=== PATIENT | female | born 1990 | race Caucasian/White ===

== ENCOUNTER 2017-07-07 05:31 | Emergency (ER) | payer OTHER ==
[2017-07-07] MEDS ORDERED: SODIUM CHLORIDE 0.9% 1,000 ML IV STA ×2 (05:51→06:49)
[2017-07-07] MEDS ORDERED: AMPICILLIN-SULBACTAM 3 GM in SODIUM CHLORIDE 0.9% 100 ML IVPB STA (05:51)
[2017-07-07] MEDS ORDERED: DEXAMETHASONE SOD PHOSPHATE 10 MG/ML 1 ML VIAL IV STA (05:51)
--- NOTE | 2017-07-07 05:55 | ED ---
General Adult HPI - General Source: patient, RN notes reviewed Mode of arrival: ambulatory Limitations: no limitations <Braden Meyer - Last Filed: 07/07/17 05:53> <Hima Welsh - Last Filed: 07/07/17 08:34> - General Chief complaint: ENT Stated complaint: Sore throat Time Seen by Provider: 07/07/17 05:47 - History of Present Illness Initial comments: Patient is a pleasant 27-year-old female presenting to the emergency department with sore throat. Onset was 2 days ago. Symptoms have worsened since last night. Patient has had fever. Patient is able to tolerate oral liquids and some solids with difficulty. Patient does feel a little bit short of breath secondary to swelling. Patient states it hurts to swallow. No cough. (Braden Meyer) - Related Data Previous Rx's Medication Instructions Recorded Amoxicillin/Potassium Clav 1 tab PO Q12HR #20 tab 07/07/17 [Augmentin 875-125 Tablet] Ibuprofen 800 mg PO Q6HR PRN #20 tablet 07/07/17 methylPREDNISolone Dose Pack 4 mg PO DIRECTED #21 package 07/07/17 [Medrol Dose Pack] Allergies Allergy/AdvReac Type Severity Reaction Status Date / Time No Known Allergies Allergy Verified 07/07/17 08:09 Review of Systems ROS Other: All systems not noted in ROS Statement are negative. Constitutional: Reports: fever Eyes: Denies: eye pain ENT: Reports: throat pain. Denies: ear pain Respiratory: Denies: cough Cardiovascular: Denies: chest pain Endocrine: Denies: fatigue Gastrointestinal: Denies: abdominal pain Genitourinary: Denies: dysuria Musculoskeletal: Denies: back pain Skin: Denies: rash Neurological: Denies: weakness <Braden Meyer - Last Filed: 07/07/17 05:53> ROS Other: All systems not noted in ROS Statement are negative. <Hima Welsh - Last Filed: 07/07/17 08:34> ROS Statement: Those systems with pertinent positive or pertinent negative responses have been documented in the HPI. Past Medical History Past Medical History: No Reported History Additional Past Medical History / Comment(s): labor at 33 weeks, 39 week delivery. History of Any Multi-Drug Resistant Organisms: None Reported Past Surgical History: No Surgical Hx Reported Past Anesthesia/Blood Transfusion Reactions: No Reported Reaction Past Psychological History: No Psychological Hx Reported Smoking Status: Never smoker Past Alcohol Use History: None Reported Past Drug Use History: None Reported - Past Family History Father History Unknown: Yes Family Medical History: Cancer Additional Family Medical History / Comment(s): colon cancer Mother Family Medical History: No Reported History <Braden Meyer - Last Filed: 07/07/17 05:53> General Exam Limitations: no limitations General appearance: alert, in no apparent distress Head exam: Present: atraumatic Eye exam: Present: normal appearance, PERRL Expanded Throat exam: tonsillar erythema, tonsillomegaly, tonsillar exudate, other (No trismus. No uvular deviation.). negative: R peritonsillar mass, L peritonsillar mass Neck exam: Present: normal inspection Respiratory exam: Present: normal lung sounds bilaterally Cardiovascular Exam: Present: normal rhythm, tachycardia GI/Abdominal exam: Present: soft. Absent: tenderness Extremities exam: Present: normal inspection Neurological exam: Present: alert Psychiatric exam: Present: normal affect, normal mood Skin exam: Present: normal color <Braden Meyer - Last Filed: 07/07/17 05:53> Course <Braden Meyer - Last Filed: 07/07/17 05:53> <Hima Welsh - Last Filed: 07/07/17 08:34> Vital Signs 07/07/17 07/07/17 07/07/17 05:33 06:15 08:15 Temperature 99.7 F H 100.1 F H Pulse Rate 138 H 130 H 108 H Respiratory 18 20 18 Rate Blood Pressure 118/66 117/66 115/66 O2 Sat by Pulse 100 100 99 Oximetry - Reevaluation(s) Reevaluation #1: 07/07/17 08:31 The patient was endorsed to me by Dr. Meyer at our shift change pending IV fluids and IV antibiotics. Patient is feeling improved she still feels warm. She'll be placed on oral antibiotics and is encouraged to take fluids also Motrin and Tylenol for fever control. I also did suggest that steroids would help with the pharyngeal process. Patient is in agreement and would like to go home she'll be discharged (Hima Welsh) Medical Decision Making - Lab Data Result diagrams: 07/07/17 06:05 07/07/17 06:05 <Hima Welsh - Last Filed: 07/07/17 08:34> - Lab Data Lab Results 07/07/17 07/07/17 07/07/17 Range/Units 05:40 06:05 06:05 WBC 17.3 H (3.8-10.6) k/uL RBC 5.10 (3.80-5.40) m/uL Hgb 12.8 (11.4-16.0) gm/dL Hct 39.6 (34.0-46.0) % MCV 77.7 L (80.0-100.0) fL MCH 25.1 (25.0-35.0) pg MCHC 32.3 (31.0-37.0) g/dL RDW 15.1 (11.5-15.5) % Plt Count 218 (150-450) k/uL Neutrophils % 87 % Lymphocytes % 6 % Monocytes % 5 % Eosinophils % 1 % Basophils % 0 % Neutrophils # 15.0 H (1.3-7.7) k/uL Lymphocytes # 1.1 (1.0-4.8) k/uL Monocytes # 0.8 (0-1.0) k/uL Eosinophils # 0.1 (0-0.7) k/uL Basophils # 0.1 (0-0.2) k/uL Sodium 143 (137-145) mmol/L Potassium 3.9 (3.5-5.1) mmol/L Chloride 102 (98-107) mmol/L Carbon Dioxide 22 (22-30) mmol/L Anion Gap 19 mmol/L BUN 10 (7-17) mg/dL Creatinine 0.80 (0.52-1.04) mg/dL Est GFR (CKD-EPI)AfAm >90 (>60 ml/min/1.73 sqM) Est GFR (CKD-EPI)NonAf >90 (>60 ml/min/1.73 sqM) Glucose 111 H (74-99) mg/dL Calcium 10.4 H (8.4-10.2) mg/dL Total Bilirubin 0.8 (0.2-1.3) mg/dL AST 18 (14-36) U/L ALT 20 (9-52) U/L Alkaline Phosphatase 95 (38-126) U/L Total Protein 8.3 H (6.3-8.2) g/dL Albumin 4.6 (3.5-5.0) g/dL Heterophile Antibody (Negative) Group A Strep Rapid Negative (Negative) 07/07/17 Range/Units 06:05 WBC (3.8-10.6) k/uL RBC (3.80-5.40) m/uL Hgb (11.4-16.0) gm/dL Hct (34.0-46.0) % MCV (80.0-100.0) fL MCH (25.0-35.0) pg MCHC (31.0-37.0) g/dL RDW (11.5-15.5) % Plt Count (150-450) k/uL Neutrophils % % Lymphocytes % % Monocytes % % Eosinophils % % Basophils % % Neutrophils # (1.3-7.7) k/uL Lymphocytes # (1.0-4.8) k/uL Monocytes # (0-1.0) k/uL Eosinophils # (0-0.7) k/uL Basophils # (0-0.2) k/uL Sodium (137-145) mmol/L Potassium (3.5-5.1) mmol/L Chloride (98-107) mmol/L Carbon Dioxide (22-30) mmol/L Anion Gap mmol/L BUN (7-17) mg/dL Creatinine (0.52-1.04) mg/dL Est GFR (CKD-EPI)AfAm (>60 ml/min/1.73 sqM) Est GFR (CKD-EPI)NonAf (>60 ml/min/1.73 sqM) Glucose (74-99) mg/dL Calcium (8.4-10.2) mg/dL Total Bilirubin (0.2-1.3) mg/dL AST (14-36) U/L ALT (9-52) U/L Alkaline Phosphatase (38-126) U/L Total Protein (6.3-8.2) g/dL Albumin (3.5-5.0) g/dL Heterophile Antibody Negative (Negative) Group A Strep Rapid (Negative) Disposition <Braden Meyer - Last Filed: 07/07/17 05:53> <Hima Welsh - Last Filed: 07/07/17 08:34> Clinical Impression: Tonsillitis, Febrile illness, acute, Leukocytosis Disposition: HOME SELF-CARE Condition: Good Instructions: Tonsillitis (ED), Fever in Adults (ED) Prescriptions: Amoxicillin/Potassium Clav [Augmentin 875-125 Tablet] 1 tab PO Q12HR #20 tab Ibuprofen 800 mg PO Q6HR PRN #20 tablet PRN Reason: Pain methylPREDNISolone Dose Pack [Medrol Dose Pack] 4 mg PO DIRECTED #21 package Referrals: Enoc Cool MD [Primary Care Provider] - 1-2 days Brandan Lema MD [STAFF PHYSICIAN] - 1-2 days
[2017-07-07 06:14] LABS: Basophils # (A) 0.1 k/uL (0-0.2); Basophils % (A) 0 %; Eosinophils # (A) 0.1 k/uL (0-0.7); Eosinophils % (A) 1 %; HCT 39.6 % (34.0-46.0); HGB 12.8 gm/dL (11.4-16.0); Lymphocytes # (A) 1.1 k/uL (1.0-4.8); Lymphocytes % (A) 6 %; MCH 25.1 pg (25.0-35.0); MCHC 32.3 g/dL (31.0-37.0); MCV 77.7 fL (80.0-100.0); Mean Platelet Volume 6.8; Monocytes # (A) 0.8 k/uL (0-1.0); Monocytes % (A) 5 %; Neutrophils % (A) 87 %; Platelet Count 218 k/uL (150-450); RDW 15.1 % (11.5-15.5); WBC 17.3 k/uL (3.8-10.6)
[2017-07-07] MEDS ORDERED: IBUPROFEN 600 MG TAB PO STA (06:15)
[2017-07-07] MEDS ORDERED: ACETAMINOPHEN TAB 500 MG TAB PO STA (06:15)
[2017-07-07 06:27] LABS: ALT 20 U/L (9-52); AST 18 U/L (14-36); Albumin 4.6 g/dL (3.5-5.0); Alkaline Phosphatase 95 U/L (38-126); Anion Gap 19 mmol/L; Blood Urea Nitrogen 10 mg/dL (7-17); Calcium 10.4 mg/dL (8.4-10.2); Carbon Dioxide 22 mmol/L (22-30); Chloride 102 mmol/L (98-107); Glucose 111 mg/dL (74-99); Potassium 3.9 mmol/L (3.5-5.1); Sodium 143 mmol/L (137-145); Total Bilirubin 0.8 mg/dL (0.2-1.3); Total Protein 8.3 g/dL (6.3-8.2)
[2017-07-07 08:16] VITALS: BP 115/66; PULSE 108; RESP 18; TEMP 100.1
== END 2017-07-07 08:35 | disposition home or self-care (01) ==
LOC: EC 05:31
DX: J03.90 Acute tonsillitis, unspecified (principal); D72.829 Elevated white blood cell count, unspecified
CPT/HCPCS: 99283; 96365; 96375; 96361; 36415; 80053; 85025; 86308; 87040; 87081; 87430; J1100; J0295; 87077; 87186

== ENCOUNTER 2018-05-02 07:59 | Day surgery (SDC) | payer OTHER ==
[2018-04-27 14:45] VITALS: BMI 23.3
[~2018-05-02 07:59] MED LIST: DEXAMETHASONE SOD PHOSPHATE 10 MG/ML 1 ML VIAL IV ONE; DEXAMETHASONE SOD PHOSPHATE 4 MG/ML 1 ML VIAL IV ONE; FAMOTIDINE 20 MG/2 ML VIAL IV ONE; LACTATED RINGERS 1,000 ML IV SCH; LIDOCAINE 1% 20 ML VIAL (10MG/ML) FOR IV START INTRADERMA PRN; MIDAZOLAM (PF) 2 MG/2 ML VIAL IV PRN; ONDANSETRON 4 MG/2 ML VIAL IVP ONE; ceFAZolin 1,000 MG in DEXTROSE/WATER 1 50ML.BAG IV ONE
[2018-05-02] MEDS ORDERED: LACTATED RINGERS 1,000 ML IV ONE ×2 (08:50→11:12)
[2018-05-02] MEDS ORDERED: LIDOCAINE 1% 20 ML VIAL (10MG/ML) FOR IV START INTRADERMA ONE (08:59)
[2018-05-02] MEDS ORDERED: GLYCOPYRROLATE 0.2 MG/ML 2 ML VIAL ONE (09:30)
[2018-05-02] MEDS ORDERED: NEOSTIGMINE 1 MG/ML 10 ML VIAL ONE (09:30)
[2018-05-02] MEDS ORDERED: fentaNYL (PF) 50 MCG/ML 2 ML AMP ONE (09:30)
[2018-05-02] MEDS ORDERED: DEXAMETHASONE SOD PHOS (MDV) 100 MG/10 ML VIAL ONE (09:30)
[2018-05-02] MEDS ORDERED: MIDAZOLAM 2 MG/2 ML VIAL ONE (09:30)
[2018-05-02] MEDS ORDERED: ROCURONIUM BROMIDE 10 MG/ML 10 ML VIAL IV ONE (09:30)
[2018-05-02] MEDS ORDERED: PROPOFOL 10 MG/ML 20 ML VIAL IV ONE (09:30)
[2018-05-02] MEDS ORDERED: LIDOCAINE 1% INJ 10MG/ML (20 ML MDV) ONE (09:30)
--- NOTE | 2018-05-02 10:24 | P.OP ---
Date of Procedure: 05/02/18 Preoperative Diagnosis: Chronic tonsillitis Chronic cryptic tonsillitis Postoperative Diagnosis: Same Procedure(s) Performed: Tonsillectomy Anesthesia: JLUIS Surgeon: Brandan Lema Estimated Blood Loss (ml): 3 Pathology: other (Bilateral tonsils) Condition: stable Disposition: PACU Indications for Procedure: This is a 28-year-old white female who for many years has had difficulties with chronic cryptic tonsils but also has had difficulties over the last 9-10 months with recurrent and chronic tonsillitis requiring multiple antibiotics Operative Findings: Tonsils +3 bilaterally without erythema but did have crypts with debris in the crypts Description of Procedure: Patient brought in the operative suite and placed in a supine position. The patient underwent induction of general anesthesia with oral endotracheal intubation without difficulty. Patient was prepped and draped in usual aseptic fashion. The McIvor mouth gag was placed. The soft palate was palpated and no submucous cleft was noted. Left tonsil was grasped with curved Allis clamp and dissected from the tonsillar fossa in a superior to inferior direction using both blunt and electrocautery dissection until the tonsil was removed. Once tonsils removed hemostasis was gained with suction cautery. Once hemostasis was obtained attention was turned to the right where the right tonsil was removed exactly as the left had been. Once this tonsils removed hemostasis was gained with suction cautery. Once hemostasis was obtained and remained good in both tonsillar fossa the patient was allowed to emerge from general anesthesia having tolerated procedure well was extubated in the operating suite and transferred to postop recovery area in satisfactory condition.
[2018-05-02] MEDS: fentaNYL (PF) 50 MCG/ML 2 ML AMP IV PRN ×2 (10:43→10:49)
[2018-05-02 10:52] VITALS: TEMP 97.3
[2018-05-02 10:56] VITALS: RESP 16
[2018-05-02 11:36] VITALS: BP 104/71; PULSE 94
[2018-05-02] MEDS ORDERED: HYDROcodone/APAP 5-325MG 1 EACH TAB PO ONE (11:55)
== END 2018-05-02 12:16 | disposition home or self-care (01) ==
LOC: OR 07:59
PROVIDERS: ATTEND Otolaryngology
DX: J35.01 Chronic tonsillitis (principal); A42.89 Other forms of actinomycosis; Z79.3 Long term (current) use of hormonal contraceptives
CPT/HCPCS: 81025; 88304; 42826; J2250; J1100 ×2; J2710; J2405; J2001; J3010; J0690; J2704

== ENCOUNTER 2022-06-27 11:21 | Observation (INO) | payer BC, OTHER ==
[2022-06-27] MEDS ORDERED: SODIUM CHLORIDE 0.9% 1,000 ML IV STA (11:36)
--- NOTE | 2022-06-27 11:40 | ED ---
Arrhythmia/Palpitations HPI - General Chief Complaint: Arrhythmia/Palpitations Stated Complaint: High Heart Rate (dizziness) Time Seen by Provider: 06/27/22 11:31 Source: patient, RN notes reviewed, old records reviewed Mode of arrival: ambulatory Limitations: no limitations - History of Present Illness Initial Comments: This is a nontoxic-appearing 32-year-old female presents to the emergency room with complaints of palpitations since this morning. Patient states that she has not 5-6 weeks and has been having nausea and morning. She developed some dizziness today and checked her heart rate was found to be elevated. She does have a history of SVT last year after an upper respiratory illness and was put on Cardizem for a month with resolution and has not been taking it since. Her creative writing teacher at that time did not recommend further treatment. She denies any chest pain or difficulty in breathing. Patient is a seen Dr. Nelson next appointment July 12. MD Complaint: rapid heart beat -: hour(s) Arrhythmia History: SVT Associated Symptoms: denies other symptoms - Related Data Home Medications Medication Instructions Recorded Confirmed [id number] Acid 1 cap PO DAILY 06/27/22 06/27/22 [-U Capsule (formulary)] Allergies Allergy/AdvReac Type Severity Reaction Status Date / Time No Known Allergies Allergy Verified 06/27/22 13:07 Review of Systems ROS Statement: Those systems with pertinent positive or pertinent negative responses have been documented in the HPI. ROS Other: All systems not noted in ROS Statement are negative. Past Medical History Past Medical History: No Reported History Additional Past Medical History / Comment(s): SVT History of Any Multi-Drug Resistant Organisms: None Reported Past Surgical History: No Surgical Hx Reported Additional Past Surgical History / Comment(s): [place] teeth extracted. Past Anesthesia/Blood Transfusion Reactions: No Reported Reaction Past Psychological History: No Psychological Hx Reported Smoking Status: Never smoker Past Alcohol Use History: Occasional Past Drug Use History: None Reported - Past Family History Father History Unknown: Yes Family Medical History: Cancer Additional Family Medical History / Comment(s): colon cancer Mother Family Medical History: No Reported History General Exam Limitations: no limitations General appearance: alert, in no apparent distress Head exam: Present: atraumatic Eye exam: Present: normal appearance. Absent: scleral icterus, conjunctival in jection, periorbital swelling ENT exam: Present: mucous membranes moist Respiratory exam: Present: normal lung sounds bilaterally. Absent: respiratory distress, accessory muscle use Cardiovascular Exam: Present: tachycardia (138) GI/Abdominal exam: Present: soft Extremities exam: Present: full ROM, normal capillary refill. Absent: pedal edema Back exam: Absent: tenderness, CVA tenderness (R), CVA tenderness (L), paraspinal tenderness, vertebral tenderness, rash noted Neurological exam: Present: alert, oriented X3 Psychiatric exam: Present: normal affect, normal mood Skin exam: Present: warm, dry, normal color. Absent: rash, cyanosis, diaphoretic, pallor Course Vital Signs 06/27/22 06/27/22 06/27/22 11:24 11:42 11:51 Temperature 98.2 F Pulse Rate 144 H 144 H Pulse Rate [ 144 H Industrial Technology Teacher ] Respiratory 22 18 Rate Blood Pressure 120/79 136/74 O2 Sat by Pulse 100 Oximetry 06/27/22 06/27/22 06/27/22 12:24 13:58 15:26 Temperature Pulse Rate 126 H 129 H 129 H Pulse Rate [ Industrial Technology Teacher ] Respiratory 16 16 18 Rate Blood Pressure 122/74 121/74 119/72 O2 Sat by Pulse Oximetry 06/27/22 17:35 Temperature Pulse Rate 121 H Pulse Rate [ Industrial Technology Teacher ] Respiratory 16 Rate Blood Pressure 111/67 O2 Sat by Pulse 95 Oximetry - Reevaluation(s) Reevaluation #1: 06/27/22 12:36 Patient states that she had an elevated d-dimer a year ago when she had this epi sode. She did have a CT at that time that was negative. She was seeing Dr. Cantu out of [facility]. Time: 12:36 EKG Findings - Dysrhythmias: Sinus rhythms and dysrhythmias: sinus tachycardia (Sinus tachycardia with a ventricular rate of 138, IL interval 0.100, QRS 0.91, QTC 0.439, normal axis) Medical Decision Making - Medical Decision Making EKG shows sinus tachycardia with a ventricular rate of 138, IL interval 0.100, QRS 0.91, QTC 0.439. No old EKG to compare. Chest x-ray interpreted by me shows no evidence of infiltrate, trachea midline. Radiologist interpretation no acute process. No significant change from prior. Patient was given a liter IV fluids and reassess remains tachycardic in the 120s. Remains pain-free. Labs show no evidence of leukocytosis. Hemoglobin and hematocrit are stable. Electrolytes are unremarkable. Troponin is negative. Patient was found to have an elevated d-dimer of 0.73. She was offered a compu jaylene tomography scan and declined stating that when this occurred last year d- dimer was elevated and he did a CT which was negative. Wells score for PE low risk of 1.5. Patient will be admitted for persistent tachycardia elevated d-dimer. She is agreeable to this plan of care. Case discussed with Dr. Em Was pt. sent in by a medical professional or institution (, PA, OBSTETRIC ASSISTANT, urgent care, hospital, or jail...) When possible be specific @ -[No] Did you speak to anyone other than the patient for history (EMS, parent, family, police, friend...)? What history was obtained from this source @ -[No] Did you review nursing and triage notes (agree or disagree)? Why? @ -[I reviewed and agree with nursing and triage notes] Were old charts reviewed (outside hosp., previous admission, EMS record, old EKG, old radiological studies, urgent care reports/EKG's, jail records)? Report findings @ -[No old charts were reviewed] Differential Diagnosis (chest pain, altered mental status, abdominal pain women, abdominal pain men, vaginal bleeding, weakness, fever, dyspnea, syncope, headache, dizziness, GI bleed, back pain, seizure, CVA, palpatations, mental health, musculoskeletal)? @ -Differential Palpitations Ventricular arrhythmias, atrial arrhythmias, myocardial infarction, anemia, thyrotoxicosis, electrolyte imbalance, hypokalemia, pulmonary embolism, pulmonary disease, drugs, alcohol, anxiety, stress.... This is not meant to be an all-inclusive list. EKG interpreted by me (3pts min.). @ -[As above] X-rays interpreted by me (1pt min.). @ -Yes as above CT interpreted by me (1pt min.). @ -[None done] U/S interpreted by me (1pt. min.). @ -[None done] What testing was considered but not performed or refused? (CT, X-rays, U/S, labs)? Why? @ -CT was considered and declined by patient What meds were considered but not given or refused? Why? @ -[None] Did you discuss the management of the patient with other professionals (professionals i.e. , PA, OBSTETRIC ASSISTANT, lab, RT, psych nurse, child welfare social worker, tray worker, teacher, staff submarine warfare officer, shoe parts caser)? Give summary @ -[No] Was smoking cessation discussed for >3mins.? @ -[No] Was critical care preformed (if so, how long)? @ -[No] Were there social determinants of health that impacted care today? How? (Homelessness, low income, unemployed, alcoholism, drug addiction, transportation, low edu. Level, literacy, decrease access to med. care, longterm, rehab)? @ -[No] Was there de-escalation of care discussed even if they declined (Discuss DNR or withdrawal of care, Hospice)? DNR status @ -[No] What co-morbidities impacted this encounter? (DM, HTN, Smoking, COPD, CAD, Cancer, CVA, ARF, Chemo, Hep., AIDS, mental health diagnosis, sleep apnea, morbid obesity)? @ -History of SVT, currently 5-6 weeks' gestation Was patient admitted / discharged? Hospital course, mention meds given and route, prescriptions, significant lab abnormalities, going to OR and other pe rtinent info. @ -Admitted Undiagnosed new problem with uncertain prognosis? @ -[No] Drug Therapy requiring intensive monitoring for toxicity (Heparin, Nitro, Insulin, Cardizem)? @ -[No] Were any procedures done? @ -[No] Diagnosis/symptom? @ -Persistent tachycardia, elevated d-dimer, Acute, or Chronic, or Acute on Chronic? @ -Acute Uncomplicated (without systemic symptoms) or Complicated (systemic symptoms)? @ -Complicated Side effects of treatment? @ -[No] Exacerbation, Progression, or Severe Exacerbation? @ -[No] Poses a threat to life or bodily function? How? (Chest pain, [place], [place], pneumonia, PE, COPD, DKA, ARF, appy, cholecystitis, CVA, Diverticulitis, Homicidal, Suicidal, threat to staff... and all critical care pts) @ -Yes , elevated d-dimer with persistent tachycardia in - Lab Data Result diagrams: 06/27/22 11:40 06/27/22 11:40 Lab Results 0306/27/22 06/27/22 Range/Units 11:40 11:40 11:40 WBC 5.0 (3.8-10.6) k/uL RBC 4.41 (3.80-5.40) m/uL Hgb 12.4 (11.4-16.0) gm/dL Hct 36.1 (34.0-46.0) % MCV 81.9 (80.0-100.0) fL MCH 28.2 (25.0-35.0) pg MCHC 34.4 (31.0-37.0) g/dL RDW 15.1 (11.5-15.5) % Plt Count 161 (150-450) k/uL MPV 8.3 Neutrophils % 82 % Lymphocytes % 5 % Monocytes % 9 % Eosinophils % 1 % Basophils % 1 % Neutrophils # 4.0 (1.3-7.7) k/uL Lymphocytes # 0.2 L (1.0-4.8) k/uL Monocytes # 0.4 (0-1.0) k/uL Eosinophils # 0.1 (0-0.7) k/uL Basophils # 0.0 (0-0.2) k/uL PT 10.5 (9.0-12.0) sec INR 1.0 (<1.2) APTT 23.0 (22.0-30.0) sec D-Dimer 0.73 H (<0.60) mg/L FEU Sodium (137-145) mmol/L Potassium (3.5-5.1) mmol/L Chloride (98-107) mmol/L Carbon Dioxide (22-30) mmol/L Anion Gap mmol/L BUN (7-17) mg/dL Creatinine (0.52-1.04) mg/dL Est GFR (CKD-EPI)AfAm (>60 ml/min/1.73 sqM) Est GFR (CKD-EPI)NonAf (>60 ml/min/1.73 sqM) Glucose (74-99) mg/dL Calcium (8.4-10.2) mg/dL Magnesium (1.6-2.3) mg/dL Total Bilirubin (0.2-1.3) mg/dL AST (14-36) U/L ALT (4-34) U/L Alkaline Phosphatase (38-126) U/L Troponin I (0.000-0.034) ng/mL Total Protein (6.3-8.2) g/dL Albumin (3.5-5.0) g/dL TSH (0.465-4.680) mIU/L Urine Color Yellow Urine Appearance Clear (Clear) Urine pH 7.5 (5.0-8.0) Ur Specific [place] 1.018 (1.001-1.035) Urine Protein Negative (Negative) Urine Glucose (UA) Negative (Negative) Urine Ketones 2+ H (Negative) Urine Blood Negative (Negative) Urine Nitrite Negative (Negative) Urine Bilirubin Negative (Negative) Urine Urobilinogen <2.0 (<2.0) mg/dL Ur Leukocyte Esterase Negative (Negative) Urine HCG, Qual (Not Detectd) Urine Opiates Screen (NotDetected) Ur Oxycodone Screen (NotDetected) Urine Methadone Screen (NotDetected) Ur Propoxyphene Screen (NotDetected) Ur Barbiturates Screen (NotDetected) U Tricyclic Antidepress (NotDetected) Ur Phencyclidine Scrn (NotDetected) Ur Amphetamines Screen (NotDetected) U Methamphetamines Scrn (NotDetected) U Benzodiazepines Scrn (NotDetected) Urine Cocaine Screen (NotDetected) U Marijuana (THC) Screen (NotDetected) 06/27/22 06/27/22 06/27/22 Range/Units 11:40 11:40 11:40 WBC (3.8-10.6) k/uL RBC (3.80-5.40) m/uL Hgb (11.4-16.0) gm/dL Hct (34.0-46.0) % MCV (80.0-100.0) fL MCH (25.0-35.0) pg MCHC (31.0-37.0) g/dL RDW (11.5-15.5) % Plt Count (150-450) k/uL MPV Neutrophils % % Lymphocytes % % Monocytes % % Eosinophils % % Basophils % % Neutrophils # (1.3-7.7) k/uL Lymphocytes # (1.0-4.8) k/uL Monocytes # (0-1.0) k/uL Eosinophils # (0-0.7) k/uL Basophils # (0-0.2) k/uL PT (9.0-12.0) sec INR (<1.2) APTT (22.0-30.0) sec D-Dimer (<0.60) mg/L FEU Sodium 136 L (137-145) mmol/L Potassium 3.6 (3.5-5.1) mmol/L Chloride 103 (98-107) mmol/L Carbon Dioxide 21 L (22-30) mmol/L Anion Gap 12 mmol/L BUN 6 L (7-17) mg/dL Creatinine 0.61 (0.52-1.04) mg/dL Est GFR (CKD-EPI)AfAm >90 (>60 ml/min/1.73 sqM) Est GFR (CKD-EPI)NonAf >90 (>60 ml/min/1.73 sqM) Glucose 102 H (74-99) mg/dL Calcium 9.4 (8.4-10.2) mg/dL Magnesium 1.6 (1.6-2.3) mg/dL Total Bilirubin 0.5 (0.2-1.3) mg/dL AST 23 (14-36) U/L ALT 22 (4-34) U/L Alkaline Phosphatase 61 (38-126) U/L Troponin I <0.012 (0.000-0.034) ng/mL Total Protein 7.6 (6.3-8.2) g/dL Albumin 4.6 (3.5-5.0) g/dL TSH 0.781 (0.465-4.680) mIU/L Urine Color Urine Appearance (Clear) Urine pH (5.0-8.0) Ur Specific [place] (1.001-1.035) Urine Protein (Negative) Urine Glucose (UA) (Negative) Urine Ketones (Negative) Urine Blood (Negative) Urine Nitrite (Negative) Urine Bilirubin (Negative) Urine Urobilinogen (<2.0) mg/dL Ur Leukocyte Esterase (Negative) Urine HCG, Qual Detected (Not Detectd) Urine Opiates Screen (NotDetected) Ur Oxycodone Screen (NotDetected) Urine Methadone Screen (NotDetected) Ur Propoxyphene Screen (NotDetected) Ur Barbiturates Screen (NotDetected) U Tricyclic Antidepress (NotDetected) Ur Phencyclidine Scrn (NotDetected) Ur Amphetamines Screen (NotDetected) U Methamphetamines Scrn (NotDetected) U Benzodiazepines Scrn (NotDetected) Urine Cocaine Screen (NotDetected) U Marijuana (THC) Screen (NotDetected) 06/27/22 Range/Units 12:40 WBC (3.8-10.6) k/uL RBC (3.80-5.40) m/uL Hgb (11.4-16.0) gm/dL Hct (34.0-46.0) % MCV (80.0-100.0) fL MCH (25.0-35.0) pg MCHC (31.0-37.0) g/dL RDW (11.5-15.5) % Plt Count (150-450) k/uL MPV Neutrophils % % Lymphocytes % % Monocytes % % Eosinophils % % Basophils % % Neutrophils # (1.3-7.7) k/uL Lymphocytes # (1.0-4.8) k/uL Monocytes # (0-1.0) k/uL Eosinophils # (0-0.7) k/uL Basophils # (0-0.2) k/uL PT (9.0-12.0) sec INR (<1.2) APTT (22.0-30.0) sec D-Dimer (<0.60) mg/L FEU Sodium (137-145) mmol/L Potassium (3.5-5.1) mmol/L Chloride (98-107) mmol/L Carbon Dioxide (22-30) mmol/L Anion Gap mmol/L BUN (7-17) mg/dL Creatinine (0.52-1.04) mg/dL Est GFR (CKD-EPI)AfAm (>60 ml/min/1.73 sqM) Est GFR (CKD-EPI)NonAf (>60 ml/min/1.73 sqM) Glucose (74-99) mg/dL Calcium (8.4-10.2) mg/dL Magnesium (1.6-2.3) mg/dL Total Bilirubin (0.2-1.3) mg/dL AST (14-36) U/L ALT (4-34) U/L Alkaline Phosphatase (38-126) U/L Troponin I (0.000-0.034) ng/mL Total Protein (6.3-8.2) g/dL Albumin (3.5-5.0) g/dL TSH (0.465-4.680) mIU/L Urine Color Urine Appearance (Clear) Urine pH (5.0-8.0) Ur Specific [place] (1.001-1.035) Urine Protein (Negative) Urine Glucose (UA) (Negative) Urine Ketones (Negative) Urine Blood (Negative) Urine Nitrite (Negative) Urine Bilirubin (Negative) Urine Urobilinogen (<2.0) mg/dL Ur Leukocyte Esterase (Negative) Urine HCG, Qual (Not Detectd) Urine Opiates Screen Not Detected (NotDetected) Ur Oxycodone Screen Not Detected (NotDetected) Urine Methadone Screen Not Detected (NotDetected) Ur Propoxyphene Screen Not Detected (NotDetected) Ur Barbiturates Screen Not Detected (NotDetected) U Tricyclic Antidepress Not Detected (NotDetected) Ur Phencyclidine Scrn Not Detected (NotDetected) Ur Amphetamines Screen Not Detected (NotDetected) U Methamphetamines Scrn Not Detected (NotDetected) U Benzodiazepines Scrn Not Detected (NotDetected) Urine Cocaine Screen Not Detected (NotDetected) U Marijuana (THC) Screen Not Detected (NotDetected) Disposition Clinical Impression: Palpitations, Tachycardia, Disposition: ADMITTED IP TO THIS [facility] Decision Date: 06/27/22 Decision Time: 12:45
[2022-06-27 11:56] LABS: Basophils % (A) 1 %; Eosinophils # (A) 0.1 k/uL (0-0.7); Eosinophils % (A) 1 %; HCT 36.1 % (34.0-46.0); HGB 12.4 gm/dL (11.4-16.0); Lymphocytes # (A) 0.2 k/uL (1.0-4.8); Lymphocytes % (A) 5 %; MCH 28.2 pg (25.0-35.0); MCHC 34.4 g/dL (31.0-37.0); MCV 81.9 fL (80.0-100.0); Mean Platelet Volume 8.3; Monocytes # (A) 0.4 k/uL (0-1.0); Monocytes % (A) 9 %; Neutrophils % (A) 82 %; Platelet Count 161 k/uL (150-450); RBC 4.41 m/uL (3.80-5.40); RDW 15.1 % (11.5-15.5)
--- NOTE | 2022-06-27 12:02 | XR ---
EXAMINATION TYPE: XR chest 2V DATE OF EXAM: 06/27/2022 COMPARISON: Prior chest x-ray June 26, 2015 HISTORY: Dysrhythmia TECHNIQUE: Frontal and lateral views of the chest are obtained. FINDINGS: There is no suspicious new focal air space opacity, pleural effusion, or pneumothorax seen . The cardiac silhouette size is stable and within normal limits. Overlying EKG leads are present. The osseous structures are intact. IMPRESSION: No acute process. No significant change from prior.
[2022-06-27 12:09] LABS: ALT 22 U/L (4-34); AST 23 U/L (14-36); African American GFR (CKD) >90 (>60 ml/min/1.73 sqM); Albumin 4.6 g/dL (3.5-5.0); Alkaline Phosphatase 61 U/L (38-126); Anion Gap 12 mmol/L; Blood Urea Nitrogen 6 mg/dL (7-17); Calcium 9.4 mg/dL (8.4-10.2); Carbon Dioxide 21 mmol/L (22-30); Chloride 103 mmol/L (98-107); Glucose 102 mg/dL (74-99); Magnesium 1.6 mg/dL (1.6-2.3); Non-African American GFR(CKD) >90 (>60 ml/min/1.73 sqM); Potassium 3.6 mmol/L (3.5-5.1); Prothrombin Time 10.5 sec (9.0-12.0); Sodium 136 mmol/L (137-145); Total Bilirubin 0.5 mg/dL (0.2-1.3); Total Protein 7.6 g/dL (6.3-8.2)
[2022-06-27 12:21] LABS: Appearance,Urine Clear (Clear); Bilirubin,Urine Negative (Negative); Blood,Urine Negative (Negative); Color,Urine Yellow; Glucose,Urine (UA) Negative (Negative); Ketones,Urine 2+ (Negative); Leukocyte Esterase,Urine Negative (Negative); Nitrite,Urine Negative (Negative); PH, Urine 7.5 (5.0-8.0); Protein,Urine Negative (Negative); Specific Gravity,Urine 1.018 (1.001-1.035); Urobilinogen,Urine <2.0 mg/dL (<2.0)
[2022-06-27] MEDS ORDERED: NALOXONE 0.4 MG/ML 1 ML VIAL IV PRN (12:45)
[2022-06-27 13:00] LABS: Amphetamine Screen,Urine Not Detected (NotDetected); Barbiturate Screen,Urine Not Detected (NotDetected); Benzodiazepines Screen,Urine Not Detected (NotDetected); Cocaine Screen,Urine Not Detected (NotDetected); Methadone Screen, Urine Not Detected (NotDetected); Opiate Screen,Urine Not Detected (NotDetected); Oxycodone Screen, Urine Not Detected (NotDetected); Phencyclidine Screen,Urine Not Detected (NotDetected); Tricyclic Antidepressant,Urine Not Detected (NotDetected); Urn Cannabinoid Scrn Not Detected (NotDetected)
--- NOTE | 2022-06-27 14:26 | P.HPIM ---
History of Present Illness H&P Date: 06/27/22 Patient is a 32-year-old female, 5-6 weeks presents the ED for palpitations. She reports lightheadedness today that is worse with positional changes. She checked her heart rate which was noted to be elevated. Her symptoms were associated with mild chest tightness. She reports a history of SVT in the past for which she was put on Cardizem for a month with complete resolution of symptoms. She currently does not take any medications. She currently denies any lightheadedness. She reports mild nausea associated with her . She denies any headache, fever or chills, cough, shortness of breath, changes in urination or bowel habits. No changes in appetite or weight. She denies any numbness/weakness/tingling of the extremities. In the ED, she was noted to have a heart rate of 144. Vital signs were otherwise stable. CBC showed lymphocyte count of 0.2. Coagulation panel was within normal limits. D- dimer elevated at 0.73. CMP showed sodium of 136, bicarb of 21, BUN of 6 and glucose of 102. Troponin was less than 0.012, EKG showed sinus tachycardia with ventricular rate of 138. TSH was 0.71. Urine hCG was positive. UDS was negative. Chest x-ray negative for acute finding. Patient is admitted under observation status for management of tachycardia and cardiology consultation. Pertinent positives and negatives as discussed in HPI, a complete review of systems was performed and all other systems are negative. General: non toxic, no distress, appears at stated age Derm: warm, dry Head: atraumatic, normocephalic, symmetric Eyes: EOMI, no lid lag, anicteric sclera Mouth: no lip lesion, mucus membranes moist Cardiovascular: Tachycardic, no murmur Lungs: CTA bilateral, no rhonchi, no rales , no accessory muscle use Ext: no gross muscle atrophy, no edema, no contractures Neuro: no focal neuro deficits Psych: Alert, oriented, appropriate affect #Tachycardia #Elevated d-dimer # Based on my assessment of this patient, this patient meets a moderate complexity level of care. I have reviewed the following design studio consultant notes: None. I have reviewed the results of the following tests: CBC showed lymphocyte count of 0.2. Coagulation panel was within normal limits. D-dimer elevated at 0.73. CMP showed sodium of 136, bicarb of 21, BUN of 6 and glucose of 102. Troponin was less than 0.012. EKG showed sinus tachycardia with ventricular rate of 138. TSH was 0.71. Urine hCG was positive. UDS was negative. Chest x-ray negative for acute finding. I have ordered the following tests: Echocardiogram. I have discussed the care of this patient with the following independent historian: None. I have independently interpreted the following test below: None. I have discussed the management of this patient with the following physician: This was discussed with the ED physician decision made to admit the patient under observation status for monitoring of tachycardia and cardiology consultation. This patient has a moderate risk of morbidity due to the following reasons: Patient has a new diagnosis of sinus tachycardia with uncertain prognosis. This is likely related to her . She is currently asymptomatic. Cardiology has been consulted for further management of this patient. I will order an echocardiogram and telemetry monitoring. She reports having a CTA chest done in the past for elevated D-Dimer. She is refusing to get a CTA chest today. Her elevated D-Dimer could also be related to . SCD boots for DVT prophylaxis. She names her mother decision maker if she can't make decisions for herself. Patient would like to be full code. Past Medical History Past Medical History: No Reported History Additional Past Medical History / Comment(s): SVT History of Any Multi-Drug Resistant Organisms: None Reported Past Surgical History: No Surgical Hx Reported Additional Past Surgical History / Comment(s): [place] teeth extracted. Past Anesthesia/Blood Transfusion Reactions: No Reported Reaction Past Psychological History: No Psychological Hx Reported Smoking Status: Never smoker Past Alcohol Use History: Occasional Past Drug Use History: None Reported - Past Family History Father History Unknown: Yes Family Medical History: Cancer Additional Family Medical History / Comment(s): colon cancer Mother Family Medical History: No Reported History Medications and Allergies Home Medications Medication Instructions Recorded Confirmed Type Xwc-Keun-Vldyv Acid 1 cap PO DAILY 06/27/22 06/27/22 History [-U Capsule (formulary)] Allergies Allergy/AdvReac Type Severity Reaction Status Date / Time No Known Allergies Allergy Verified 06/27/22 13:07 Physical Exam Vitals: Vital Signs Temp Pulse Pulse Resp BP Pulse Ox 06/27/22 13:58 129 H 16 121/74 06/27/22 12:24 126 H 16 122/74 06/27/22 11:51 144 H 06/27/22 11:42 144 H 18 136/74 06/27/22 11:24 98.2 F 144 H 22 120/79 100 Intake and Output 06/26/22 06/27/22 06/27/22 22:59 06:59 14:59 Other: Weight 75.75 kg Results CBC & Chem 7: 06/27/22 11:40 06/27/22 11:40 Labs: Abnormal Lab Results - Last 24 Hours (Table) 06/27/22 06/27/22 06/27/22 Range/Units 11:40 11:40 11:40 Lymphocytes # 0.2 L (1.0-4.8) k/uL D-Dimer 0.73 H (<0.60) mg/L FEU Sodium (137-145) mmol/L Carbon Dioxide (22-30) mmol/L BUN (7-17) mg/dL Glucose (74-99) mg/dL Urine Ketones 2+ H (Negative) 06/27/22 Range/Units 11:40 Lymphocytes # (1.0-4.8) k/uL D-Dimer (<0.60) mg/L FEU Sodium 136 L (137-145) mmol/L Carbon Dioxide 21 L (22-30) mmol/L BUN 6 L (7-17) mg/dL Glucose 102 H (74-99) mg/dL Urine Ketones (Negative)
[2022-06-27] MEDS: ACETAMINOPHEN TAB 325 MG TAB PO PRN (17:35)
[2022-06-28] MEDS: ACETAMINOPHEN TAB 325 MG TAB PO PRN ×2 (02:50→12:30)
[2022-06-28 06:52] VITALS: PULSE 99; RESP 18; TEMP 98.1
[2022-06-28] MEDS ORDERED: PRENATAL VIT-IRON-FOLIC ACID 1 EACH TABLET PO SCH (09:00)
--- NOTE | 2022-06-28 10:50 | P.CRDCN ---
History of Present Illness Consult date: 06/28/22 Reason for Consult (text): Tachycardia History of present illness: History of present illness: This is a 32-year-old female who gives history of having SVT in the past. We have been asked to evaluate the patient regarding tachycardia. Patient states that around 7 AM yesterday she was feeling dizzy and she checked her heart rate and it was 150 bpm while she was walking. She decided to sit down and her heart rate went down to the 130s but stayed there. She states she had an episode of SVT 1 year ago and was seen by a Dr. Cantu, was placed on Cardizem for about one month and then the issue had resolved. Patient states that she is usually active and does not experience any chest pain with activity. She denies having any shortness of breath, lower extremity edema, PND, orthopnea. She has no cough or fever. She is a nonsmoker. She denies history of asthma or COPD. No history of blood in her stools or urine. No history of stroke or seizure activity. Patient does state that she is 5-9 weeks on her third . She denies having any issues with previous pregnancies. She is taking vitamins but no other medications. She states she drinks one Mountain Dew per day. No alcohol use. EKG sinus tachycardia, telemetry sinus tachycardia 100 bpm Chest x-ray: No acute process WBC 5, hemoglobin 12.4, platelet count 161. INR is 1. D-dimer 0.73. Sodium 136, potassium 3.6, BUN 6 and creatinine 0.61. Blood sugar 102. Troponin negative 1. TSH 0.781. Liver function tests are normal. Magnesium 1.6. Urinalysis negative for infection. Urine drug screen is negative Home cardiac medications: None Review Of Systems: At the time of my evaluation: Constitutional: No fever, no chills. No weakness, fatigue or lethargy. EENT: No headache. No dizziness. Lungs: No shortness of breath, cough, no sputum production. No wheezing. Cardiovascular: No chest pain, no lower extremity edema. No palpitations. No paroxysmal nocturnal dyspnea. No orthopnea. No lightheadedness or dizziness. No syncopal episodes. Abdominal: No abdominal pain. No nausea, vomiting. No diarrhea. No constipation. No bloody or tarry stools. Genitourinary: No dysuria.. No urinary retention. Musculoskeletal: No myalgias. No muscle weakness, no frequent falls. No back pain. No neck pain. Integumentary: No wounds. No rash. No unusual bruising. Neurologic: No aphasia. No facial droop. No change in mentation. No head injury. No headache. Physical examination: Gen: This is a 32-year-old female. She is resting in bed and appears to be comfortable and in no acute distress. VS: reviewed HEENT: Head is atraumatic, normocephalic. Pupils equal, round. Sclerae is anicteric. NECK: Supple. No JVD. . LUNGS: Clear to auscultation. No wheezes or rhonchi. No intercostal retractions. HEART: Regular rate and rhythm. No murmur. ABDOMEN: Soft No tenderness. EXTREMITIES: No pedal edema. No calf tenderness. NEUROLOGICAL: Patient is awake, alert and oriented x3. Assessment: Sinus tachycardia No sign of SVT Plan: Patient encouraged to stay well hydrated Obtain 2-D echocardiogram and Doppler study to assess cardiac structure and function If echocardiogram is within normal limits, no further testing will be done. Patient will be cleared for discharge home. Thank you kindly for this consultation. Nurse practitioner note has been reviewed, I agree with documented findings and plan of care. Patient was seen and examined. Past Medical History Past Medical History: No Reported History Additional Past Medical History / Comment(s): SVT History of Any Multi-Drug Resistant Organisms: None Reported Past Surgical History: Tonsillectomy Additional Past Surgical History / Comment(s): [place] teeth extracted. Past Anesthesia/Blood Transfusion Reactions: No Reported Reaction Past Psychological History: No Psychological Hx Reported Smoking Status: Never smoker Past Alcohol Use History: Occasional Past Drug Use History: None Reported - Past Family History Father History Unknown: Yes Family Medical History: Cancer Additional Family Medical History / Comment(s): colon cancer Mother Family Medical History: No Reported History Medications and Allergies Home Medications Medication Instructions Recorded Confirmed Type Oco-Omvl-Pwnes Acid 1 cap PO DAILY 06/27/22 06/27/22 History [-U Capsule (formulary)] Allergies Allergy/AdvReac Type Severity Reaction Status Date / Time No Known Allergies Allergy Verified 06/27/22 13:07 Physical Exam Vitals: Vital Signs Temp Pulse Pulse Resp BP BP Pulse Ox 06/28/22 06:46 98.1 F 99 18 108/70 99 06/28/22 02:44 99.5 F 117 H 16 107/67 97 06/27/22 22:00 107 H 16 06/27/22 21:32 98.2 F 107 H 16 107/72 97 06/27/22 20:00 101 H 18 104/61 98 06/27/22 17:35 121 H 16 111/67 95 06/27/22 15:26 129 H 18 119/72 06/27/22 13:58 129 H 16 121/74 06/27/22 12:24 126 H 16 122/74 06/27/22 11:51 144 H 06/27/22 11:42 144 H 18 136/74 06/27/22 11:24 98.2 F 144 H 22 120/79 100 Intake and Output 06/27/22 06/28/22 06/28/22 22:59 06:59 14:59 Intake Total 0 Balance 0 Intake: Oral 0 Other: Voiding Method Toilet # Voids 1 2 Weight 75.75 kg Results 06/27/22 11:40 06/27/22 11:40 Cardiac Enzymes 06/27/22 06/27/22 Range/Units 11:40 11:40 AST 23 (14-36) U/L Troponin I <0.012 (0.000-0.034) ng/mL Coagulation 06/27/22 Range/Units 11:40 PT 10.5 (9.0-12.0) sec APTT 23.0 (22.0-30.0) sec CBC 06/27/22 Range/Units 11:40 WBC 5.0 (3.8-10.6) k/uL RBC 4.41 (3.80-5.40) m/uL Hgb 12.4 (11.4-16.0) gm/dL Hct 36.1 (34.0-46.0) % Plt Count 161 (150-450) k/uL Comprehensive Metabolic Panel 06/27/22 Range/Units 11:40 Sodium 136 L (137-145) mmol/L Potassium 3.6 (3.5-5.1) mmol/L Chloride 103 (98-107) mmol/L Carbon Dioxide 21 L (22-30) mmol/L BUN 6 L (7-17) mg/dL Creatinine 0.61 (0.52-1.04) mg/dL Glucose 102 H (74-99) mg/dL Calcium 9.4 (8.4-10.2) mg/dL AST 23 (14-36) U/L ALT 22 (4-34) U/L Alkaline Phosphatase 61 (38-126) U/L Total Protein 7.6 (6.3-8.2) g/dL Albumin 4.6 (3.5-5.0) g/dL Current Medications Generic Name Dose Route Start Last Admin Trade Name Freq PRN Reason Stop Dose Admin Acetaminophen 650 mg 06/27/22 12:45 06/28/22 02:50 Acetaminophen Tab 325 Mg Tab PO 650 mg Q6HR PRN Administration Mild Pain or Fever > 100.5 Naloxone HCl 0.2 mg 06/27/22 12:45 Naloxone 0.4 Mg/Ml 1 Ml Vial IV Q2M PRN Opioid Reversal Vit/Calcium/Iron/Folic Ac 1 each 06/28/22 09:00 Vib-Zpgy-Fdaxr Acid 1 Each Tablet PO DAILY EDWIGE Intake and Output 06/27/22 06/28/22 06/28/22 22:59 06:59 14:59 Intake Total 0 Balance 0 Intake: Oral 0 Other: Voiding Method Toilet # Voids 1 2 Weight 75.75 kg 06/27/22 11:40 06/27/22 11:40
--- NOTE | 2022-06-28 13:47 | CA ---
Transthoracic Echo Report Name: Diane Hughes Age: 32 Gender: F : 1990 Exam Date: 06/28/2022 07:23 Exam Location: [facility] Ht (in): 65 Wt (lb): 167 Ordering Physician: Toni Hong MD Attending/Referring Phys: Surgical Resident Maykel Borrego RDCS Procedure CPT: Indications: tachycardia Cardiac Hx: Technical Quality: Fair Contrast 1: Total Dose (mL): Contrast 2: Total Dose (mL): MEASUREMENTS (Male / Female) Normal Values 2D ECHO LV Diastolic Diameter PLAX 4.5 cm 4.2 - 5.9 / 3.9 - 5.3 cm LV Systolic Diameter PLAX 2.6 cm IVS Diastolic Thickness 0.6 cm 0.6 - 1.0 / 0.6 - 0.9 cm LVPW Diastolic Thickness 0.8 cm 0.6 - 1.0 / 0.6 - 0.9 cm LV Relative Wall Thickness 0.3 RV Internal Dim ED PLAX 2.0 cm LVOT Diameter 2.0 cm LA Systolic Diameter LX 2.8 cm 3.0 - 4.0 / 2.7 - 3.8 cm LV Diastolic Volume MOD BP 67.9 cm??? 67 - 155 / 56 - 104 cm??? LV Systolic Volume MOD BP 29.7 cm??? 22 - 58 / 19 - 49 cm??? LV Ejection Fraction MOD BP 56.3 % >= 55 % LV Diastolic Volume MOD 4C 65.7 cm??? LV Systolic Volume MOD 4C 26.5 cm??? LV Ejection Fraction MOD 4C 59.6 % LV Diastolic Length 4C 7.0 cm LV Systolic Length 4C 5.3 cm LV Diastolic Volume MOD 2C 69.0 cm??? LV Systolic Volume MOD 2C 30.0 cm??? LV Ejection Fraction MOD 2C 56.5 % LV Diastolic Length 2C 6.7 cm LV Systolic Length 2C 6.0 cm Ascending Aorta Diameter 1.6 cm M-MODE Aortic Root Diameter MM 2.8 cm LA Systolic Diameter MM 2.3 cm LA Ao Ratio MM 0.8 MV E Point Septal Separation 2.8 cm AV Cusp Separation MM 1.4 cm DOPPLER AV Peak Velocity 128.4 cm/s AV Peak Gradient 6.6 mmHg Mitral E Point Velocity 62.1 cm/s Mitral A Point Velocity 58.0 cm/s Mitral E to A Ratio 1.1 MV Deceleration Time 171.6 ms MV E' Velocity 10.0 cm/s Mitral E to MV E' Ratio 6.2 TR Peak Velocity 166.4 cm/s TR Peak Gradient 11.1 mmHg Right Ventricular Systolic Press 16.1 mmHg PV Peak Velocity 87.0 cm/s PV Peak Gradient 3.0 mmHg FINDINGS Left Ventricle Normal left ventricular size, wall thickness, systolic function with no obvious regional wall motion abnormalities. The ejection fraction is visually estimated at 55-60 %. Right Ventricle The right ventricle is normal in size and function. Right Atrium The right atrium is normal in size. Left Atrium The left atrium is normal in size. Mitral Valve Structurally normal mitral valve without significant stenosis or prolapse. There is minimal mitral regurgitation. Aortic Valve Structurally normal aortic valve without significant sclerosis or stenosis. There is no aortic regurgitation. Tricuspid Valve Structurally normal tricuspid valve without significant stenosis. Pulmonary artery systolic pressure is normal. Trace to mild tricuspid regurgitation. Pulmonic Valve Structurally normal pulmonic valve without significant stenosis. There is no pulmonic regurgitation. Pericardium Normal pericardium without effusion. Aorta Normal aortic root dimension. CONCLUSIONS 1. Normal left ventricle size and systolic function 2. Trace mitral and tricuspid regurgitation Previewed by: Dr. Ovidio Dos Santos MD (Electronically Signed) Final Date: 28 June 2022 13:46
--- NOTE | 2022-06-28 14:47 | P.DS ---
Providers Date of admission: 06/27/22 14:28 Expected date of discharge: 06/28/22 Attending physician: Beti Mike DO Consults: 06/27/22 14:26 Consult Physician Routine Consulting Provider: Wilman Dunne Consult Reason/Comments: Tachycardia Do you want consulting provider notified?: Yes Primary care physician: Gil Hagan MD Hospital Course: Discharge Diagnosis: Sinus tachycardia , first trimester Elevated d-dimer Hospital Course: 32-year-old female, 5-6 weeks presents the ED for palpitations. In the ED, she was noted to have a heart rate of 144. Vital signs were otherwise stable. CBC showed lymphocyte count of 0.2. Coagulation panel was within normal limits. D-dimer elevated at 0.73. CMP showed sodium of 136, b icarb of 21, BUN of 6 and glucose of 102. Troponin was less than 0.012, EKG showed sinus tachycardia with ventricular rate of 138. TSH was 0.71. Urine hCG was positive. UDS was negative. Chest x-ray negative for acute finding. Patient is admitted under observation status for management of tachycardia and cardiology consultation. Elevated d-dimer likely in the setting of . Patient has no respiratory complaints. Symptoms had improved at the time of discharge. She received a total of 1 L normal saline in the ED. Echo showed normal LV systolic function. Patient being discharged home Patient seen and examined at bedside. Vital signs reviewed and stable. General: nontoxic, no distress, appears at stated age Derm: warm, dry Head: atraumatic, normocephalic, symmetric Eyes: EOMI, no lid lag, anicteric sclera Mouth: no lip lesion, mucus membranes moist Cardiovascular: S1S2 reg, no murmur Lungs: CTA bilateral, no rhonchi, no rales , no accessory muscle use Abdominal: soft, nontender to palpation, no guarding, no appreciable organomegaly Ext: no gross muscle atrophy, no edema, no contractures Neuro: CN II-XI grossly intact, no focal neuro deficits Psych: Alert, oriented, appropriate affect A total of 33 minutes of time were spent preparing this complex discharge summary. Patient was discharged on 06/28/22 at 14:46. Patient Condition at Discharge: Stable Plan - Discharge Summary New Discharge Prescriptions: Continue Ied-Zjvc-Qiwzs Acid [-U Capsule (formulary)] 1 cap PO DAILY Discharge Medication List Qfj-Mcdj-Qxlkp Acid [-U Capsule (formulary)] 1 cap PO DAILY 06/27/22 [History] Follow up Appointment(s)/Referral(s): None,Stated [REFERRING] - 1-2 days Patient Instructions/Handouts: Tachycardia (GEN), (DC) Activity/Diet/Wound Care/Special Instructions: Please see your PCP and OB as soon as possible. Discharge Disposition: HOME SELF-CARE
[2022-06-28 16:04] VITALS: BP 111/76
== END 2022-06-28 16:18 | disposition home or self-care (01) ==
LOC: EC 11:21 → 6NMEDSUR 14:28
PROVIDERS: ADMIT Internal Medicine; ATTEND Internal Medicine
DX: R00.0 Tachycardia, unspecified (principal); O99.111 Other diseases of the blood and blood-forming organs and certain disorders involving the immune mechanism complicating pregnancy, first trimester; R07.89 Other chest pain; Z80.0 Family history of malignant neoplasm of digestive organs
CPT/HCPCS: 96360; 99285; 36415; 93005; 93306; 85379; 80053; 84443; 83735; 84484; 85025; 85610; 85730; 81003; 81025; 80306; 71046; G0378 ×2; S0197

== ENCOUNTER 2023-02-07 13:41 | Inpatient (IN) | payer BC ==
[2023-02-07 15:00] LABS: Basophils % (A) 1 %; Eosinophils # (A) 0.1 k/uL (0-0.7); Eosinophils % (A) 1 %; HCT 31.9 % (34.0-46.0); HGB 10.3 gm/dL (11.4-16.0); Hypochromasia Slight; Lymphocytes # (A) 2.3 k/uL (1.0-4.8); Lymphocytes % (A) 23 %; MCH 26.4 pg (25.0-35.0); MCHC 32.2 g/dL (31.0-37.0); Mean Platelet Volume 9.6; Monocytes # (A) 0.4 k/uL (0-1.0); Monocytes % (A) 5 %; Neutrophils # (A) 6.7 k/uL (1.3-7.7); Neutrophils % (A) 69 %; Platelet Count 199 k/uL (150-450); Poikilocytosis Slight; RBC 3.89 m/uL (3.80-5.40); RDW 13.7 % (11.5-15.5); WBC 9.7 k/uL (3.8-10.6)
[2023-02-07 15:07] LABS: Appearance,Urine Clear (Clear); Bilirubin,Urine Negative (Negative); Blood,Urine Negative (Negative); Color,Urine Light Yellow; Glucose,Urine (UA) Negative (Negative); Ketones,Urine Negative (Negative); Leukocyte Esterase,Urine Negative (Negative); Nitrite,Urine Negative (Negative); Protein,Urine Negative (Negative); Specific Gravity,Urine 1.015 (1.001-1.035); Urobilinogen,Urine <2.0 mg/dL (<2.0)
[2023-02-07 15:13] LABS: ALT 16 U/L (4-34); AST 25 U/L (14-36); African American GFR (CKD) >90 (>60 ml/min/1.73 sqM); Blood Urea Nitrogen 6 mg/dL (7-17); Non-African American GFR(CKD) >90 (>60 ml/min/1.73 sqM); Uric Acid 5.9 mg/dL (3.7-7.4)
[2023-02-07 17:34] LABS: Creatinine,Urine Random 129.4 mg/dL; Protein/Creatinine Ratio,Urine 0.124
[2023-02-07] MEDS ORDERED: LIDOCAINE 0.5% (PF) 5 MG/ML (50 ML SDV) SQ PRN (18:49)
[2023-02-07] MEDS ORDERED: OXYTOCIN 10 UNIT/ML 1 ML VIAL IM PRN (18:49)
[2023-02-07] MEDS ORDERED: TERBUTALINE 1 MG/ML VIAL SQ PRN (18:49)
[2023-02-07] MEDS ORDERED: miSOPROStoL 200 MCG TAB PO PRN (18:49)
[2023-02-07] MEDS ORDERED: METHYLERGONOVINE 0.2 MG/ML 1 ML AMP IM PRN (18:49)
[2023-02-07] MEDS ORDERED: CARBOPROST TROMETHAMINE 250 MCG/ML 1 ML AMP IM PRN (18:49)
[2023-02-07] MEDS ORDERED: TRANEXAMIC 1,000 MG/100ML-NACL 1,000 MG in EMPTY BAG 1 BAG IV PRN (18:49)
[2023-02-07] MEDS ORDERED: OXYTOCIN 30 UNITS/500 ML NS 30 UNIT in SALINE 1 500ML.BAG IV SCH (19:00)
[2023-02-08] MEDS: ACETAMINOPHEN TAB 325 MG TAB PO PRN (01:54)
[2023-02-08] MEDS ORDERED: OXYTOCIN 30 UNITS/500 ML NS 30 UNIT in SALINE 1 500ML.BAG IV SCH (06:00)
[2023-02-08] MEDS: LACTATED RINGERS 1,000 ML IV SCH ×2 (06:03→17:31)
--- NOTE | 2023-02-08 08:11 | P.HPOB ---
History of Present Illness H&P Date: 02/08/23 Chief Complaint: Induction of labor, gestational hypertension Ms. Hughes is a 32 year old at 38 weeks and 2 days gestation with EDC 02/20/2023 (by LMP consistent with 10 week US) presenting to labor and delivery for induction of labor for gestational hypertension. The patient has had elevated blood pressures on two occassions recently in the office, more than 4 hours apart. PIH labs are within normal limits and urine P:C is 0.1. Obstetric history: 2 FTVD, no complications work-up: blood type A positive, antibody negative, rubella immune, VDRL non-reactive, HBsAg negative, HIV negative, HCV Ab negative, gonorrhea negative, chlamydia negative, 1 hour GTT abnormal, 3 hour GTT within normal limits, GBS negative. Past Medical History Past Medical History: No Reported History Additional Past Medical History / Comment(s): SVT History of Any Multi-Drug Resistant Organisms: None Reported Past Surgical History: Tonsillectomy Additional Past Surgical History / Comment(s): [place] teeth extracted. Past Anesthesia/Blood Transfusion Reactions: No Reported Reaction Past Psychological History: No Psychological Hx Reported Smoking Status: Never smoker Past Alcohol Use History: None Reported Past Drug Use History: None Reported - Past Family History Father History Unknown: Yes Family Medical History: Cancer Additional Family Medical History / Comment(s): colon cancer Mother Family Medical History: No Reported History Medications and Allergies Home Medications Medication Instructions Recorded Confirmed Type Nwo-Ivvy-Duveu Acid 1 cap PO DAILY 06/27/22 02/07/23 History [-U Capsule (formulary)] Aspirin [Children's Aspirin] 81 mg PO DAILY 02/07/23 02/07/23 History Allergies Allergy/AdvReac Type Severity Reaction Status Date / Time No Known Allergies Allergy Verified 02/07/23 14:12 Exam Vital Signs Temp Pulse Resp BP Pulse Ox 02/08/23 01:58 97.2 F L 87 18 112/73 02/07/23 22:00 97.5 F L 96 18 109/68 99 02/07/23 18:44 97.2 F L 88 16 113/82 99 02/07/23 16:11 96 129/82 02/07/23 15:55 88 113/72 02/07/23 15:40 98 117/74 02/07/23 15:25 100 116/74 02/07/23 15:11 93 118/77 02/07/23 14:56 101 H 16 112/79 02/07/23 14:40 93 18 102/74 02/07/23 14:25 95 17 109/75 02/07/23 14:10 97 16 112/79 02/07/23 13:55 97.2 F L 88 16 113/82 99 Intake and Output 02/07/23 02/08/23 02/08/23 22:59 06:59 14:59 Other: # Voids 3 3 Weight 83.915 kg Focused physical exam is performed. This is a healthy-appearing in no apparent distress. Breathing is non-labored. Abdomen is gravid and non-tender. Cervical exam is 2 cm, 20% effacement, -3 station. AROM is undertaken with clear fluid noted. Extremities non-tender and non-edematous. heart tones are Category I and tocometer is graphing<contractions every 1-3 minutes. Results Result Diagrams: 02/07/23 14:45 02/07/23 14:45 Abnormal Lab Results - Last 24 Hours (Table) 02/07/23 02/07/23 Range/Units 14:45 14:45 Hgb 10.3 L (11.4-16.0) gm/dL Hct 31.9 L (34.0-46.0) % BUN 6 L (7-17) mg/dL Assessment and Plan Assessment: 32 year old at 38 weeks and 2 days being medically inducted for gestational hypertension Plan: NPO, mIVF, pitocin per protocol, epidural prn, continuous EFM and tocometer, close monitoring of patient Time with Patient: Less than 30
[2023-02-08] MEDS ORDERED: ROPIVACAINE 5 MG/ML 30 ML VIAL ONE (12:09)
[2023-02-08] MEDS ORDERED: SODIUM CHLORIDE 0.9% 250 ML BAG ONE (12:09)
[2023-02-08] MEDS ORDERED: fentaNYL (PF) 50 MCG/ML 5 ML AMP ONE (12:09)
[2023-02-08] MEDS ORDERED: LANOLIN CREAM 5 GM TUBE TOPICAL PRN (20:48)
[2023-02-08] MEDS ORDERED: diphenhydrAMINE 25 MG CAP PO PRN (20:48)
[2023-02-08] MEDS ORDERED: SIMETHICONE 80 MG CHEWABLE PO PRN (20:48)
[2023-02-08] MEDS ORDERED: diphenhydrAMINE 50 MG CAP PO PRN (20:48)
[2023-02-08] MEDS ORDERED: ZOLPIDEM 5 MG TAB PO PRN (20:48)
[2023-02-08] MEDS ORDERED: BENZOCAINE/MENTHOL SPRAY 1 GM/SPRAY AEROSOL TOPICAL PRN (20:48)
[2023-02-08] MEDS ORDERED: HYDROCORTISONE 2.5% RECTAL CREAM 30 GM TUBE RECTAL PRN (20:48)
[2023-02-08] MEDS ORDERED: diphenhydrAMINE 50 MG/ML 1 ML VIAL IVP PRN ×2 (20:48)
--- NOTE | 2023-02-08 20:48 | P.PROBDLV ---
Vaginal Delivery Note - . Vaginal Delivery Note: DATE OF SERVICE: 02/08/2023 PROCEDURE: Vaginal Delivery ATTENDING: Dr. Emily Urbano MD ESTIMATED BLOOD LOSS: 100 mL FINDINGS: VMI, Apgars 7/8. Weight 8 pounds and 3 ounces (3740 grams) PROCEDURE: Ms. Hughes is a 32 year old at 38 weeks and 2 days presenting to labor and delivery for medical induction of labor for gestational hypertension. For further details, please review the admitting H&P. Pitocin was started per protocol and AROM was undertaken at 737 revealing clear fluid. The patient was completely dilated at 2000. heart tones were Category I throughout the second stage. Head was delivered and a shoulder dystocia was encourtered. The typical maneuvers were used to relieve the shoulder dystocia with success after 2 minutes. Please see the separate shoulder dystocia documentation for more details about the maneuvers performed. A viable male infant was delivered at 2016. The infant was placed on the maternal abdomen and bulb suctioned. Cord was clamped and cut. The was handed off to the pediatric team. Placenta was delivered whole with gentle cord traction at 2019. Oxytocin was started to facilitate uterine tone. Uterine fundus was found to be firm and below the umbilicus upon fundal massage. Thorough examination of the cervix, vagina, periurethral area, and perineum revealed no lacerations. The patient is stable .
[2023-02-09] MEDS: ACETAMINOPHEN TAB 325 MG TAB PO PRN ×4 (02:06→21:48)
[2023-02-09] MEDS: IBUPROFEN 600 MG TAB PO PRN ×3 (05:53→18:21)
[2023-02-09 07:50] LABS: Basophils # (A) 0.1 k/uL (0-0.2); Basophils % (A) 0 %; Eosinophils # (A) 0.1 k/uL (0-0.7); Eosinophils % (A) 1 %; HCT 31.1 % (34.0-46.0); HGB 10.1 gm/dL (11.4-16.0); Hypochromasia Moderate; Lymphocytes # (A) 2.9 k/uL (1.0-4.8); Lymphocytes % (A) 15 %; MCHC 32.5 g/dL (31.0-37.0); MCV 83.2 fL (80.0-100.0); Monocytes # (A) 0.8 k/uL (0-1.0); Monocytes % (A) 4 %; Neutrophils % (A) 79 %; Platelet Count 215 k/uL (150-450); RBC 3.73 m/uL (3.80-5.40); RDW 13.8 % (11.5-15.5); WBC 20.2 k/uL (3.8-10.6)
[2023-02-09] MEDS: SENNOSIDES-DOCUSATE SODIUM 1 EACH TAB PO SCH ×2 (08:13→21:49)
--- NOTE | 2023-02-09 08:55 | P.PNOBGVD ---
Subjective - Subjective Principal diagnosis: s/p vaginal delivery complicated by shoulder dystocia Interval history: The patient is doing well this morning and had no acute events overnight. She has no complaints this morning. She reports minimal lochia, passing flatus, voiding without difficulty, ambulating, and eating/drinking without nausea or vomiting. She is her infant without difficulty. She denies chest pain, shortness of breathing, fevers, or chills overnight. She denies pain or swelling in the legs. Patient reports: Reports appetite normal, Reports voiding normally, Reports pain well controlled, Reports ambulating normally : doing well, nursing well (breast pumping) Objective - Latest Vital Signs Latest vital signs: Vital Signs Temp Pulse Resp BP Pulse Ox 02/09/23 04:00 97.9 F 95 18 108/69 98 02/08/23 22:28 98.5 F 98 18 121/64 98 02/08/23 21:58 96 18 120/78 02/08/23 21:28 97 18 121/59 98 02/08/23 21:13 100 18 140/63 02/08/23 20:58 108 H 18 124/73 97 02/08/23 20:43 108 H 20 112/57 97 02/08/23 20:28 98.5 F 117 H 20 118/57 Intake and Output 02/08/23 02/09/23 02/09/23 22:59 06:59 14:59 Intake Total 595.567 Output Total 1175 Balance -579.433 Intake: Intake, IV Titration 195.567 Amount Oxytocin 30 Units/500 ml 195.567 Ns 30 unit In Saline 1 500ml.bag @ Per Protocol IV .Q0M [facility] Rx#:[id number] Oral 400 Output: Urine 600 Straight 600 Estimated Blood Loss 200 Output, Quantitative 375 Blood Loss Other: # Voids 1 - Exam Extremities: Present: normal Abdomen: Present: normal appearance, soft Uterus: Present: normal, firm - Labs Labs: Abnormal Lab Results - Last 24 Hours (Table) 02/09/23 Range/Units 07:35 WBC 20.2 H (3.8-10.6) k/uL RBC 3.73 L (3.80-5.40) m/uL Hgb 10.1 L (11.4-16.0) gm/dL Hct 31.1 L (34.0-46.0) % Neutrophils # 16.0 H (1.3-7.7) k/uL Assessment and Plan Assessment: 32 year old now PPD#1 s/p vaginal delivery complicated by shoulder dystocia Plan: 1. . Patient meeting all milestones appropriately. 2. Viable male . In the nursing getting high flow oxygen 2/2 respiratory distress. Plan for circumcision once weaned from oxygen. Dispo: Anticipate discharge home tomorrow.
[2023-02-10] MEDS: IBUPROFEN 600 MG TAB PO PRN ×4 (00:31→18:29)
[2023-02-10] MEDS: ACETAMINOPHEN TAB 325 MG TAB PO PRN ×3 (04:22→15:52)
[2023-02-10] MEDS: SENNOSIDES-DOCUSATE SODIUM 1 EACH TAB PO SCH (08:59)
--- NOTE | 2023-02-10 09:27 | P.DS ---
Providers Date of admission: 02/07/23 18:06 Expected date of discharge: 02/10/23 Attending physician: Emily Urbano MD Primary care physician: Stated None Hospital Course: Ms. Hughes is a 32 year old PPD#2 s/p vaginal delivery complicated by shoulder dystocia. The patient is doing well this morning and had no acute events overnight. She has no complaints this morning. She reports minimal lochia, passing flatus, voiding without difficulty, ambulating, and eating/drinking without nausea or vomiting. is in the nursery for respiratory distress, oxygen has just been weaned and the baby may be discharged tomorrow. She denies chest pain, shortness of breathing, fevers, or chills overnight. She denies pain or swelling in the legs. restrictions are reviewed with the patient including pelvic rest for 6 weeks. The patient is encouraged to call the office if she experiences any heavy bleeding, foul- smelling discharge, breast complaints, or any if she has any other concerns. She will follow up in the office in 1 week for blood pressure check and in 6 weeks for exam. All questions are answered. Assessment: 32 year old s/p vaginal delivery complicated by shoulder dystocia Patient Condition at Discharge: Good Plan - Discharge Summary New Discharge Prescriptions: No Action Lgo-Ythx-Hewss Acid [-U Capsule (formulary)] 1 cap PO DAILY Aspirin [Children's Aspirin] 81 mg PO DAILY Discharge Medication List Vxk-Lxoy-Ogmie Acid [-U Capsule (formulary)] 1 cap PO DAILY 06/27/22 [History] Aspirin [Children's Aspirin] 81 mg PO DAILY 02/07/23 [History] Follow up Appointment(s)/Referral(s): Emily Urbano MD [STAFF PHYSICIAN] - 1 Week (blood pressure check) Activity/Diet/Wound Care/Special Instructions: Instructions 1. Do not begin any exercise program for 3 weeks. 2. Do not resume sexual relations for 6 weeks or longer if uncomfortable. 3. You may take tub baths or showers at any time. 4. You may use tampons if desired after 6 weeks. 5. Keep any areas repaired with stitches clean and dry. 6. If you are not nursing, wear a good fitting, supportive bra during the day and limit fluid intake for at least 1 week to prevent breast engorgement. 7. Call the office, , within the next week to make appointment for your 6 week checkup if it has not already been made. 8. Report any of the following occurrences to the doctor promptly: a. Heavy, excessive bleeding b. Chills, fever c. Burning or frequency of urination d. Pain or redness and breasts if nursing e. Increasing pain or swelling of vulva (stitches). In addition to the above instructions, the following additional should be followed: 1. No heavy lifting or straining (exercising) until after 6 week checkup. 2. Keep abdominal incision clean and dry: You may wear a dressing if more comfortable. 3. Make office appointment for 2 weeks after delivery date. Discharge Disposition: HOME SELF-CARE
[2023-02-10 17:44] VITALS: BP 123/68; PULSE 94; RESP 18; TEMP 97.5
== END 2023-02-10 18:30 | disposition home or self-care (01) | DRG 807 ==
LOC: FBPOP 13:41 → 4FBP 18:06
PROVIDERS: ADMIT Obstetrics & Gynecology; ATTEND Obstetrics & Gynecology
PROC: 3E033VJ Introduction of Other Hormone into Peripheral Vein, Percutaneous Approach (ICD-10-PCS; 2023-02-07)
PROC: 3E0DXGC Introduction of Other Therapeutic Substance into Mouth and Pharynx, External Approach (ICD-10-PCS; 2023-02-07)
PROC: 10E0XZZ Delivery of Products of Conception, External Approach (ICD-10-PCS; principal; 2023-02-08)
PROC: 10907ZC Drainage of Amniotic Fluid, Therapeutic from Products of Conception, Via Natural or Artificial Opening (ICD-10-PCS; principal; 2023-02-08)
DX: O13.4 Gestational [pregnancy-induced] hypertension without significant proteinuria, complicating childbirth (principal); O66.0 Obstructed labor due to shoulder dystocia; Z28.310 Unvaccinated for COVID-19; Z79.82 Long term (current) use of aspirin; Z86.79 Personal history of other diseases of the circulatory system; Z3A.38 38 weeks gestation of pregnancy; Z37.0 Single live birth
CPT/HCPCS: 59025; 81003; 82565; 82570; 84156; 84450; 84460; 84520; 84550; 85025; 86850; 86900; 86901

== ENCOUNTER 2024-01-02 17:51 | Emergency (ER) | payer BC, OTHER ==
[2024-01-02 18:00] VITALS: RESP 16
--- NOTE | 2024-01-02 18:42 | ED ---
Female Urogenital HPI - General Chief complaint: Urogenital Stated complaint: urogenital Time Seen by Provider: 01/02/24 18:10 Source: patient, RN notes reviewed Mode of arrival: ambulatory Limitations: no limitations - History of Present Illness Initial comments: Is a 33-year-old female presents emergency department chief complaint of a believed abscess to her labia. Patient states that she has been experiencing abdominal pain on the of this month and associated intermittent fevers. Patient was evaluated by her primary care provider shortly after this and was treated for suppose a diverticulitis with ciprofloxacin and Flagyl. Patient states that over the past few days the ulcer has became more increasingly painful is noticed more areas arise. Patient was started on steroids this morning and was evaluated at her primary care provider again yesterday where she was tested for STIs outpatient. She denies personal history of STI or STDs. - Related Data Home Medications Medication Instructions Recorded Confirmed Sjg-Nlcf-Imcol Acid 1 cap PO DAILY 06/27/22 02/07/23 [-U Capsule (formulary)] Aspirin [Children's Aspirin] 81 mg PO DAILY 02/07/23 02/07/23 Allergies Allergy/AdvReac Type Severity Reaction Status Date / Time probiotics Allergy Rash/Hives Uncoded 01/02/24 18:00 Review of Systems ROS Statement: Those systems with pertinent positive or pertinent negative responses have been documented in the HPI. ROS Other: All systems not noted in ROS Statement are negative. Past Medical History Past Medical History: No Reported History Additional Past Medical History / Comment(s): SVT History of Any Multi-Drug Resistant Organisms: None Reported Past Surgical History: Tonsillectomy Additional Past Surgical History / Comment(s): [place] teeth extracted. Past Anesthesia/Blood Transfusion Reactions: No Reported Reaction Past Psychological History: No Psychological Hx Reported Smoking Status: Never smoker Past Alcohol Use History: None Reported Past Drug Use History: None Reported - Past Family History Father History Unknown: Yes Family Medical History: Cancer Additional Family Medical History / Comment(s): colon cancer Mother Family Medical History: No Reported History General Exam - General Exam Comments Initial Comments: Visual Physical Exam Vital signs reviewed General: Well-appearing, nontoxic, no acute distress. Head: Normocephalic, atraumatic Eyes: PERRLA, EOMI ENT: Airway patent Chest: Nonlabored breathing Skin: No visual rash, normal skin tone Neuro: Alert and oriented 3 Musculoskeletal: No gross abnormalities Limitations: no limitations General appearance: alert, in no apparent distress Eye exam: Present: normal appearance, PERRL, EOMI. Absent: scleral icterus, conjunctival injection, periorbital swelling ENT exam: Present: normal exam, mucous membranes moist Neck exam: Present: normal inspection. Absent: tenderness, meningismus, lymphad enopathy Respiratory exam: Present: normal lung sounds bilaterally. Absent: respiratory distress, wheezes, rales, rhonchi, stridor Cardiovascular Exam: Present: regular rate, normal rhythm, normal heart sounds. Absent: systolic murmur, diastolic murmur, rubs, gallop, clicks GI/Abdominal exam: Present: soft, normal bowel sounds. Absent: distended, tenderness, guarding, rebound, rigid External exam: Present: lesions (right labia majora ulceration/chancer measuring aprox. 2 cm by 1 cm that is indurated, signs of purulence and tender to the touch and erythematous). Absent: normal external exam Speculum exam: Present: vaginal discharge, cervical discharge By manual exam: Present: normal by manual exam Extremities exam: Present: normal inspection, full ROM, normal capillary refill. Absent: tenderness, pedal edema, joint swelling, calf tenderness Neurological exam: Present: alert, oriented X3, CN II-XII intact Skin exam: Present: warm, dry, intact, normal color. Absent: rash Course Vital Signs 01/02/24 17:56 Temperature 98.4 F Pulse Rate 123 H Respiratory 16 Rate Blood Pressure 159/86 O2 Sat by Pulse 99 Oximetry Medical Decision Making - Medical Decision Making Was pt. sent in by a medical professional or institution (, PA, SOLUTIONS SPECIALIST, urgent care, hospital, or [facility]...) When possible be specific @ -No Did you speak to anyone other than the patient for history (EMS, parent, family, police, friend...)? What history was obtained from this source @ -No Did you review nursing and triage notes (agree or disagree)? Why? @ -I reviewed and agree with nursing and triage notes Were old charts reviewed (outside hosp., previous admission, EMS record, old EKG, old radiological studies, urgent care reports/EKG's, [facility] records)? Report findings @ -No old charts were reviewed Differential Diagnosis (chest pain, altered mental status, abdominal pain women, abdominal pain men, vaginal bleeding, weakness, fever, dyspnea, syncope, headache, dizziness, GI bleed, back pain, seizure, CVA, palpatations, mental health, musculoskeletal)? @ -Syphilis, gonorrhea, chlamydia, canker right, trichomonas, urinary tract infection, this list is not all inclusive EKG interpreted by me (3pts min.). @ -None X-rays interpreted by me (1pt min.). @ -None done CT interpreted by me (1pt min.). @ -None done U/S interpreted by me (1pt. min.). @ -None done What testing was considered but not performed or refused? (CT, X-rays, U/S, labs)? Why? @ -Imaging of the head was considered but deferred at this time. Shared decision making with myself and my attending, Dr. Casas, recommended for CT imaging at this time as the infection seems quite localized and there is very minimal clinical concern for further deep burrowing abscess. What meds were considered but not given or refused? Why? @ -None Did you discuss the management of the patient with other professionals (professionals i.e. , PA, SOLUTIONS SPECIALIST, lab, RT, psych nurse, social problems specialist, screen handler, teacher, investment officer, pillowcase turner)? Give summary @ -I spoke with on-call infant room teacher specialist, Dr. Mosher, in regard to the patient's presentation and is recommend that she follow-up first thing in the morning at 9:00 outpatient for further outpatient evaluation. Was smoking cessation discussed for >3mins.? @ -No Was critical care preformed (if so, how long)? @ -No Were there social determinants of health that impacted care today? How? (Homelessness, low income, unemployed, alcoholism, drug addiction, transportation, low edu. Level, literacy, decrease access to med. care, residential, rehab)? @ -No Was there de-escalation of care discussed even if they declined (Discuss DNR or withdrawal of care, Hospice)? DNR status @ -No What co-morbidities impacted this encounter? (DM, HTN, Smoking, COPD, CAD, Cancer, CVA, ARF, Chemo, Hep., AIDS, mental health diagnosis, sleep apnea, morbid obesity)? @ -None Was patient admitted / discharged? Hospital course, mention meds given and route, prescriptions, significant lab abnormalities, going to OR and other pertinent info. @ -Discharge. 33-year-old female with pelvic complaint. Patient was originally evaluated in the emergency department waiting room her laboratory studies were in addition to urinalysis. On my personal evaluation of the patient her vitals are stable, afebrile, nontachycardic. Physical examination reveals a chancroid type ulcer of the left labia majora that measures approximately 2 cm x 1 cm that is indurated with erythema and quite tender to the touch. Patient is also having signs of cervical purulent discharge. There is no cervical motion tenderness. My attending, Dr. Casas, also personally evaluated the patient as well. CBC is mildly elevated at 13.1, left shift of 11.4, CMP grossly unremarkable, urinalysis remarkable for red blood cells, white blood cells, hCG is negative I spoke with on-call paintings restorer who recommends that patient follow-up outpatient first thing in the morning for further evaluation. Patient is treated for potential canker related of syphilis with IM penicillin and will be discharged home with analgesics including Tylenol 3. All questions answered at bedside and strict return parameters sandip with the patient she is verbalized understanding. Undiagnosed new problem with uncertain prognosis? @ -No Drug Therapy requiring intensive monitoring for toxicity (Heparin, Nitro, Insulin, Cardizem)? @ -No Were any procedures done? @ -No Diagnosis/symptom? @ -Labial ulcer, vaginal discharge, labial pain Acute, or Chronic, or Acute on Chronic? @ -acute Uncomplicated (without systemic symptoms) or Complicated (systemic symptoms)? @ -uncomplicated Side effects of treatment? @ -No Exacerbation, Progression, or Severe Exacerbation? @ -No Poses a threat to life or bodily function? How? (Chest pain, [place], [place], pneumonia, PE, COPD, DKA, ARF, appy, cholecystitis, CVA, Diverticulitis, Homicidal, Suicidal, threat to staff... and all critical care pts) @ -No - Lab Data Result diagrams: 01/02/24 19:39 01/02/24 19:39 Lab Results 01/02/24 01/02/24 01/02/24 Range/Units 19:39 19:39 19:39 WBC 13.1 H (3.8-10.6) k/uL RBC 4.83 (3.80-5.40) m/uL Hgb 12.1 (11.4-16.0) gm/dL Hct 38.4 (34.0-46.0) % MCV 79.6 L (80.0-100.0) fL MCH 25.2 (25.0-35.0) pg MCHC 31.6 (31.0-37.0) g/dL RDW 14.1 (11.5-15.5) % Plt Count 387 (150-450) k/uL MPV 7.0 Neutrophils % 87 % Lymphocytes % 8 % Monocytes % 4 % Eosinophils % 0 % Basophils % 0 % Neutrophils # 11.4 H (1.3-7.7) k/uL Lymphocytes # 1.0 (1.0-4.8) k/uL Monocytes # 0.5 (0-1.0) k/uL Eosinophils # 0.0 (0-0.7) k/uL Basophils # 0.0 (0-0.2) k/uL Hypochromasia Slight Sodium (137-145) mmol/L Potassium (3.5-5.1) mmol/L Chloride (98-107) mmol/L Carbon Dioxide (22-30) mmol/L Anion Gap mmol/L BUN (7-17) mg/dL Creatinine (0.52-1.04) mg/dL Est GFR (CKD-EPI)AfAm (>60 ml/min/1.73 sqM) Est GFR (CKD-EPI)NonAf (>60 ml/min/1.73 sqM) Glucose (74-99) mg/dL Calcium (8.4-10.2) mg/dL Total Bilirubin (0.2-1.3) mg/dL AST (14-36) U/L ALT (4-34) U/L Alkaline Phosphatase (38-126) U/L Total Protein (6.3-8.2) g/dL Albumin (3.5-5.0) g/dL Urine Color Light Yellow Urine Appearance Clear (Clear) Urine pH 6.0 (5.0-8.0) Ur Specific [place] 1.012 (1.001-1.035) Urine Protein Negative (Negative) Urine Glucose (UA) Negative (Negative) Urine Ketones Negative (Negative) Urine Blood Trace H (Negative) Urine Nitrite Negative (Negative) Urine Bilirubin Negative (Negative) Urine Urobilinogen <2.0 (<2.0) mg/dL Ur Leukocyte Esterase Moderate H (Negative) Urine RBC 20 H (0-5) /hpf Urine WBC 15 H (0-5) /hpf Ur Squamous Epith Cells 1 (0-4) /hpf Urine Bacteria Occasional H (None) /hpf Urine Mucus Rare H (None) /hpf Urine HCG, Qual Not Detected (Not Detectd) 01/02/24 Range/Units 19:39 WBC (3.8-10.6) k/uL RBC (3.80-5.40) m/uL Hgb (11.4-16.0) gm/dL Hct (34.0-46.0) % MCV (80.0-100.0) fL MCH (25.0-35.0) pg MCHC (31.0-37.0) g/dL RDW (11.5-15.5) % Plt Count (150-450) k/uL MPV Neutrophils % % Lymphocytes % % Monocytes % % Eosinophils % % Basophils % % Neutrophils # (1.3-7.7) k/uL Lymphocytes # (1.0-4.8) k/uL Monocytes # (0-1.0) k/uL Eosinophils # (0-0.7) k/uL Basophils # (0-0.2) k/uL Hypochromasia Sodium 138 (137-145) mmol/L Potassium 5.1 (3.5-5.1) mmol/L Chloride 103 (98-107) mmol/L Carbon Dioxide 25 (22-30) mmol/L Anion Gap 10 mmol/L BUN 11 (7-17) mg/dL Creatinine 1.05 H (0.52-1.04) mg/dL Est GFR (CKD-EPI)AfAm 81 (>60 ml/min/1.73 sqM) Est GFR (CKD-EPI)NonAf 70 (>60 ml/min/1.73 sqM) Glucose 130 H (74-99) mg/dL Calcium 10.3 H (8.4-10.2) mg/dL Total Bilirubin 0.4 (0.2-1.3) mg/dL AST 22 (14-36) U/L ALT 23 (4-34) U/L Alkaline Phosphatase 97 (38-126) U/L Total Protein 7.5 (6.3-8.2) g/dL Albumin 4.3 (3.5-5.0) g/dL Urine Color Urine Appearance (Clear) Urine pH (5.0-8.0) Ur Specific [place] (1.001-1.035) Urine Protein (Negative) Urine Glucose (UA) (Negative) Urine Ketones (Negative) Urine Blood (Negative) Urine Nitrite (Negative) Urine Bilirubin (Negative) Urine Urobilinogen (<2.0) mg/dL Ur Leukocyte Esterase (Negative) Urine RBC (0-5) /hpf Urine WBC (0-5) /hpf Ur Squamous Epith Cells (0-4) /hpf Urine Bacteria (None) /hpf Urine Mucus (None) /hpf Urine HCG, Qual (Not Detectd) Disposition Clinical Impression: Genital labial ulcer Disposition: HOME SELF-CARE Condition: Stable Additional Instructions: Return to the emergency department for any new or worsening symptoms. Recommend that you follow-up tomorrow morning outpatient with paintings restorer for further e valuation. Is patient prescribed a controlled substance at d/c from ED?: No Referrals: Nonstaff,Physician [REFERRING] - 1-2 days Time of Disposition: 21:57
[2024-01-02 20:07] LABS: Basophils % (A) 0 %; Eosinophils % (A) 0 %; HCT 38.4 % (34.0-46.0); HGB 12.1 gm/dL (11.4-16.0); Hypochromasia Slight; Lymphocytes % (A) 8 %; MCH 25.2 pg (25.0-35.0); MCHC 31.6 g/dL (31.0-37.0); MCV 79.6 fL (80.0-100.0); Monocytes # (A) 0.5 k/uL (0-1.0); Monocytes % (A) 4 %; Neutrophils # (A) 11.4 k/uL (1.3-7.7); Neutrophils % (A) 87 %; Platelet Count 387 k/uL (150-450); RBC 4.83 m/uL (3.80-5.40); RDW 14.1 % (11.5-15.5); WBC 13.1 k/uL (3.8-10.6)
[2024-01-02 20:13] LABS: Appearance,Urine Clear (Clear); Bacteria,Urine Occasional /hpf; Bilirubin,Urine Negative (Negative); Blood,Urine Trace (Negative); Color,Urine Light Yellow; Glucose,Urine (UA) Negative (Negative); Ketones,Urine Negative (Negative); Leukocyte Esterase,Urine Moderate (Negative); Mucus,Urine Rare /hpf; Nitrite,Urine Negative (Negative); Protein,Urine Negative (Negative); RBC,Urine 20 /hpf (0-5); Specific Gravity,Urine 1.012 (1.001-1.035); Squamous Epithelial Cell,Urine 1 /hpf (0-4); Urobilinogen,Urine <2.0 mg/dL (<2.0); WBC,Urine 15 /hpf (0-5)
[2024-01-02 20:33] LABS: ALT 23 U/L (4-34); AST 22 U/L (14-36); African American GFR (CKD) 81 (>60 ml/min/1.73 sqM); Albumin 4.3 g/dL (3.5-5.0); Alkaline Phosphatase 97 U/L (38-126); Anion Gap 10 mmol/L; Blood Urea Nitrogen 11 mg/dL (7-17); Calcium 10.3 mg/dL (8.4-10.2); Carbon Dioxide 25 mmol/L (22-30); Chloride 103 mmol/L (98-107); Glucose 130 mg/dL (74-99); Non-African American GFR(CKD) 70 (>60 ml/min/1.73 sqM); Potassium 5.1 mmol/L (3.5-5.1); Sodium 138 mmol/L (137-145); Total Bilirubin 0.4 mg/dL (0.2-1.3); Total Protein 7.5 g/dL (6.3-8.2)
[2024-01-02] MEDS: KETOROLAC 15 MG/ML 1 ML VIAL IVP STA (22:12)
[2024-01-02] MEDS: PENICILLIN G BENZATHINE 1,200,000 UNIT/2 ML SYRINGE IM ONE (22:23)
[2024-01-02] MEDS: ACET/COD 300 MG/30 MG STARTER PACK 6 TAB BTL PO STA (22:24)
[2024-01-02 22:35] VITALS: BP 143/81; PULSE 106; TEMP 98.1
[2024-01-03 13:59] LABS: N. gonorrhoeae,PCR Negative (Negative)
[2024-01-03 14:24] LABS: C. trachomatis,PCR Negative (Negative)
== END 2024-01-02 22:35 | disposition home or self-care (01) ==
LOC: EC 17:51
CPT/HCPCS: 36415; 80053; 81001; 81025; 85025; 86780; 87491; 87591; 96372; 96374; 99283